=== PATIENT | female | born 1975 | race Caucasian/White ===

== ENCOUNTER 2020-12-23 09:20 | Inpatient (IN) ==
[2020-12-23] MEDS ORDERED: ONDANSETRON INJ 2 MG/ML 2 ML VIAL IV STA (09:50)
--- NOTE | 2020-12-23 09:59 | Emergency Department Note ---
Impression & Plan Pneumonia due to COVID-19 virus, Moderate persistent asthma, Hypoxia ED Provider Note CHIEF COMPLAINT: Nausea, diarrhea, fatigue and lightheadedness, Covid positive HISTORY OF PRESENTING ILLNESS: This is a 45-year-old female who presents to the emergency department by private vehicle with complaint of feeling fatigued and lightheaded and generally weak, and having persistent nausea and diarrhea for the past few days. Patient tested positive for COVID-19 on 12/18, she has had symptoms for the past 6 days. She notes that she started having diarrhea yesterday which is loose in nature, only a few episodes. She has nausea but no vomiting. She states she has very little appetite and has lost almost 10 pounds in the past week. She notes feeling generally weak and fatigued and has been feeling lightheaded especially when she stands up from sitting down and feels like she might pass out, but she has not passed out. She notes a cough and some wheezing, she has been using her albuterol inhaler with improvement. She has not been short of breath and denies any chest pain or chest tightness. She denies any headaches, neck pain or stiffness, vision changes, or syncope. She denies any abdominal pain or back pain. She rates her pain level 0/10. She does note that she has body aches that come and go, but she is not currently complaining of any now. She does currently have nausea and is requesting something for that. 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 REVIEW OF SYSTEMS: A complete 10 point review of systems was reviewed with the patient with pertinent positives and negatives as per history of present illnes s. All else were negative. PAST MEDICAL HISTORY: Asthma SOCIAL HISTORY: Lives at home, she denies tobacco use ALLERGIES: Penicillin PHYSICAL EXAM: CONSTITUTIONAL: Pleasant and cooperative. Nontoxic-appearing and in no acute distress, but appears to feel unwell. Moderately dehydrated. HEENT: Normocephalic, atraumatic. PERRL, EOMI. Pharynx normal. Dry mucous membranes. NECK: Supple, full active range of motion without discomfort. No cervical adenopathy. No nuchal rigidity or meningismus. RESPIRATORY: Diminished in the bases with coarse crackles bilaterally, no wheezing, rhonchi, or stridor. Nonlabored breathing, no accessory muscle use or tachypnea. Equal expansion bilaterally. CARDIOVASCULAR: Regular rate and rhythm with no murmurs, rubs or gallops. Normal peripheral perfusion, 2+ distal pulses in all 4 extremities. No pitting edema. GASTROINTESTINAL: Soft, nontender to palpation throughout, nondistended. No palpable masses or HSM. Bowel sounds present in all quadrants. No CVA tenderness bilaterally. MUSCULOSKELETAL: Full range of motion of all joints without discomfort. No tenderness to palpation throughout the calves bilaterally, negative Homans' sign bilaterally. INTEGUMENTARY: No rash or other significant dermatologic conditions noted. NEUROLOGIC: Alert and oriented X 4 with normal affect. Normal strength and sensation in all 4 extremities. Normal speech. Normal gait observed. ED COURSE AND MEDICAL DECISION MAKING: CC: Patient presenting with complaint of fatigue and lightheadedness, nausea, diarrhea, + COVID-19 DIFFERENTIAL DIAGNOSIS: Includes, but not limited to COVID-19, dehydration, orthostatic hypotension, electrolyte abnormality, anemia, UTI, pneumonia, cardiac dysrhythmia, among others. INTERPRETATION OF LABS: No leukocytosis, no anemia, normal platelets, no significant electrolyte abnormalities, normal renal function, normal liver en zymes and lipase. Serum negative. Troponin undetectable. EKG: Shows normal sinus rhythm with a rate of 78 bpm, incomplete right bundle branch block, otherwise normal intervals, no ST elevation or depression, no ectopy by my interpretation. No previous EKGs available for comparison. MEDICATION RECONCILIATION: I attest that I have personally reviewed the patient's current medication list. INITIAL VITAL SIGNS REVIEW: I reviewed the patient's initial vital signs and interpret them as follows: T: Afebrile; BP: Mildly hypotensive; HR: Mildly tachycardic; RR: Within normal limits; Pulse Ox: Within normal limits on room air. MDM SUMMARY: Patient was evaluated at bedside, history and physical exam performed. Patient is alert and oriented, in no acute distress, resting calmly in the stretcher. She does appear to feel unwell and is notably dehydrated on exam. She is afebrile and nontoxic-appearing. No respiratory distress. Patient primarily complains of feeling lightheaded and nausea, but she is not actively vomiting. No abdominal tenderness on exam. Cardiac monitoring: An order was placed for continuous cardiac monitoring. The monitor shows a rate of 97 bpm with normal sinus rhythm. Orders were placed for labs including troponin, UA, IV fluid bolus x2 L for h ydration, IV Zofran for nausea, EKG, chest x-ray to evaluate for fatigue and lightheadedness. Patient discussed with Dr. Dao, who agrees with my assessment, plan, and disposition. Labs and imaging reviewed as above, labs are fairly unremarkable. Troponin is undetectable. No anemia or significant electrolyte abnormalities. Her chest x-ray did show bilateral multifocal airspace opacities consistent with a viral pneumonia. Nursing staff called and notified me that the patient had dropped her sats to 88% with minimal exertion, and is now on nasal cannula. I did talk over the phone with the patient to see how she is feeling, she she feels slightly better after receiving some IV fluids, but is still very fatigued. She also is complaining of some return of body aches and requested something for this, I did order IV Toradol. Given her oxygen requirement, I did feel that she could benefit from hospital stay. I did order IV Decadron and the patient is currently on 3 L nasal cannula. I spoke on the phone with Dr. Mills, [facility] Hospitalist, who agreed to evaluate the patient for admission. He requested that the patient only receive 1 L of fluids, I contacted the patient's nurse and the second liter will be held. The patient was updated on plan for admission, she was agreeable to this plan. Patient was stable at time of admission. The chart was completed utilizing [employer] Speech voice recognition software. Grammatical errors, random word insertions, pronoun errors, and incomplete sentences are an occasional consequence of this system due to software limitations, ambient noise, and hardware issues. Any formal questions or concerns about the content, text, or information contained within the body of this dictation should be directly addressed to the nurse practitioner for clarification. Past Med/Surg History Medical History Endometriosis GERD (gastroesophageal reflux disease) Moderate persistent asthma Surgical History History of cholecystectomy History of hysterectomy Social History Smoking Status: Former smoker Age Quit Using Tobacco: 39; packs per day: 1; Years Smoked: 20; Second Hand Exposure: No; Do You Dip or Chew Tobacco: No; Hx Alcohol Use: Yes Alcohol type: beer, wine and hard liquor Hx Substance Use: No Preferred Language: Serbian Communication Ability: Effective Peoplesoft Programmer Required: No Beliefs That Will Affect Care: None Current Living Situation: Spouse Other Information That Helps Us Care for You: No Feels Safe at Home: Yes Safety Concerns: Feels Safe At This Time Assistive Devices: Denture - Upper and Glasses Allergies Allergies Allergy/AdvReac Type Severity Reaction Status Date / Time Penicillins Allergy Intermediate Vomiting Unverified 12/23/20 10:09 Home Meds Home Medications Medication Instructions Recorded Confirmed fluticasone propion-salmeterol 1 inh INHALATION BID 12/23/20 12/23/20 [Advair Diskus] levocetirizine [Xyzal] 5 mg PO PM PRN 12/23/20 12/23/20 omeprazole 40 mg PO QAM 12/23/20 12/23/20 Results & Data (ED) Vital Signs Vital Signs - 24 hr 12/23/20 09:30 12/23/20 11:20 12/23/20 11:50 Temperature 36.6 C Temperature Source Temporal Artery Scan Pulse Rate - Lying 84 Pulse Rate - Sitting 82 Pulse Rate - Standing 89 Pulse Rate 99 H 76 Pulse Rate from SpO2 Sensor 75 Respiratory Rate 18 20 25 H Respiratory Effort / Characteristics Non-Labored Spontaneous Blood Pressure - Lying 111/68 Blood Pressure - Sitting 110/72 Blood Pressure- Standing 105/69 Blood Pressure 93/67 L 105/69 Blood Pressure Mean 75 81 Pulse Oximetry 92 91 95 Oxygen Delivery Method Room Air Room Air Oxygen Flow Rate Sepsis Recent Fever Within 48 Hours No Sepsis New/Unexplained Change in Mental Status N/A Sepsis Action Taken by Nursing No Action Required 12/23/20 12:04 Temperature Temperature Source Pulse Rate - Lying Pulse Rate - Sitting Pulse Rate - Standing Pulse Rate Pulse Rate from SpO2 Sensor Respiratory Rate Respiratory Effort / Characteristics Blood Pressure - Lying Blood Pressure - Sitting Blood Pressure- Standing Blood Pressure Blood Pressure Mean Pulse Oximetry 88 L Oxygen Delivery Method Room Air Oxygen Flow Rate 3 Sepsis Recent Fever Within 48 Hours Sepsis New/Unexplained Change in Mental Status Sepsis Action Taken by Nursing Laboratory Data Result diagrams: 12/23/20 11:45 12/23/20 11:45 Lab Results 04/15/21 04/15/21 04/15/21 Range/Units 11:43 11:45 11:45 WBC 4.92 (4.8-10.8) K/uL RBC 5.14 (4.2-5.4) M/uL Hgb 14.0 (12.0-16.0) g/dL Hct 42.7 (37-47) % MCV 83.1 (80-100) fL MCH 27.2 (25-34) pg MCHC 32.8 (32-36) g/dL RDW Std Deviation 43.2 (36.4-46.3) fL RDW Coeff of Jannette 14.1 (11.5-14.5) % Plt Count 259 (130-400) K/uL MPV 10.6 H (7.4-10.4) fL Immature Gran % (Auto) 0.0 % Neut % (Auto) 73.8 % Lymph % (Auto) 21.7 % [place] % (Auto) 4.3 % Eos % (Auto) 0.0 % Baso % (Auto) 0.2 % Neut # (Auto) 3.63 (1.4-6.5) K/uL Lymph # (Auto) 1.07 L (1.2-3.4) K/uL [place] # (Auto) 0.21 (0.11-0.59) K/uL Eos # (Auto) 0.00 (0-0.5) K/uL Baso # (Auto) 0.01 (0-0.2) K/uL Immature Gran # (Auto) 0.00 (0.00-0.02) K/uL D-Dimer 250 (0-500) ug/L FEU Sodium 139 (136-145) mmol/L Potassium 3.5 (3.5-5.1) mmol/L Chloride 104 (98-107) mmol/L Carbon Dioxide 29 (21-32) mmol/L Anion Gap 6.0 (3-11) BUN 19 H (7-18) mg/dl Creatinine 0.95 (0.6-1.2) mg/dl Est Cr Clr Drug Dosing Not Reportable Est GFR ( Amer) 84.4 Est GFR (Non-Af Amer) 72.8 BUN/Creatinine Ratio 20.3 H (10-20) Glucose 89 (70-99) mg/dl Calcium 8.8 (8.5-10.1) mg/dl Total Bilirubin 0.6 (0.2-1) mg/dl AST 46 H (15-37) U/L ALT 46 (12-78) U/L Alkaline Phosphatase 74 (45-117) U/L Troponin I < 0.015 (0-0.045) ng/ml C-Reactive Protein (0-0.29) mg/dl Total Protein 7.9 (6.4-8.2) gm/dl Albumin 3.4 (3.4-5.0) gm/dl Globulin 4.5 H (2.5-4.0) gm/dl Albumin/Globulin Ratio 0.8 L (0.9-2) Lipase 293 (73-393) U/L HCG, Qual (Negative) Urine Color Urine Appearance (Clear) Urine pH (4.5-7.5) Ur Specific Morley (1.000-1.030) Urine Protein (Negative) Urine Glucose (UA) (Negative) Urine Ketones (Negative) Urine Blood (Negative) Urine Nitrite (Negative) Urine Bilirubin (Negative) Urine Urobilinogen (Negative) Ur Leukocyte Esterase (Negative) Urine WBC (Auto) (0-5) /hpf Urine RBC (Auto) (0-4) /hpf U Hyaline Cast (Auto) (0-5) /lpf U Epithel Cells (Auto) (0-5) /lpf Urine Bacteria (Auto) (Negative) Granular Casts (0) /lpf WBC Casts (0) /lpf COVID-19 Eval Order SARS-CoV-2 (PCR) (Negative) Influenza Type A (PCR) (Neg) Influenza Type B (PCR) (Neg) RSV (RT-PCR) (Neg) 12/23/20 12/23/20 12/23/20 Range/Units 11:45 11:45 12:55 WBC (4.8-10.8) K/uL RBC (4.2-5.4) M/uL Hgb (12.0-16.0) g/dL Hct (37-47) % MCV (80-100) fL MCH (25-34) pg MCHC (32-36) g/dL RDW Std Deviation (36.4-46.3) fL RDW Coeff of Jannette (11.5-14.5) % Plt Count (130-400) K/uL MPV (7.4-10.4) fL Immature Gran % (Auto) % Neut % (Auto) % Lymph % (Auto) % [place] % (Auto) % Eos % (Auto) % Baso % (Auto) % Neut # (Auto) (1.4-6.5) K/uL Lymph # (Auto) (1.2-3.4) K/uL [place] # (Auto) (0.11-0.59) K/uL Eos # (Auto) (0-0.5) K/uL Baso # (Auto) (0-0.2) K/uL Immature Gran # (Auto) (0.00-0.02) K/uL D-Dimer (0-500) ug/L FEU Sodium (136-145) mmol/L Potassium (3.5-5.1) mmol/L Chloride (98-107) mmol/L Carbon Dioxide (21-32) mmol/L Anion Gap (3-11) BUN (7-18) mg/dl Creatinine (0.6-1.2) mg/dl Est Cr Clr Drug Dosing Est GFR ( Amer) Est GFR (Non-Af Amer) BUN/Creatinine Ratio (10-20) Glucose (70-99) mg/dl Calcium (8.5-10.1) mg/dl Total Bilirubin (0.2-1) mg/dl AST (15-37) U/L ALT (12-78) U/L Alkaline Phosphatase (45-117) U/L Troponin I (0-0.045) ng/ml C-Reactive Protein 0.78 H (0-0.29) mg/dl Total Protein (6.4-8.2) gm/dl Albumin (3.4-5.0) gm/dl Globulin (2.5-4.0) gm/dl Albumin/Globulin Ratio (0.9-2) Lipase (73-393) U/L HCG, Qual Negative (Negative) Urine Color Dark Yellow Urine Appearance Cloudy A (Clear) Urine pH 5.5 (4.5-7.5) Ur Specific Morley 1.029 (1.000-1.030) Urine Protein 1+ H (Negative) Urine Glucose (UA) Negative (Negative) Urine Ketones Trace H (Negative) Urine Blood Trace H (Negative) Urine Nitrite Positive A (Negative) Urine Bilirubin 1+ H (Negative) Urine Urobilinogen Negative (Negative) Ur Leukocyte Esterase Trace H (Negative) Urine WBC (Auto) 1-5 (0-5) /hpf Urine RBC (Auto) 10-30 H (0-4) /hpf U Hyaline Cast (Auto) 1-5 (0-5) /lpf U Epithel Cells (Auto) >30 H (0-5) /lpf Urine Bacteria (Auto) Negative (Negative) Granular Casts 1-5 H (0) /lpf WBC Casts 1-5 H (0) /lpf COVID-19 Eval Order SARS-CoV-2 (PCR) (Negative) Influenza Type A (PCR) (Neg) Influenza Type B (PCR) (Neg) RSV (RT-PCR) (Neg) 12/23/20 12/23/20 Range/Units 12:55 12:55 WBC (4.8-10.8) K/uL RBC (4.2-5.4) M/uL Hgb (12.0-16.0) g/dL Hct (37-47) % MCV (80-100) fL MCH (25-34) pg MCHC (32-36) g/dL RDW Std Deviation (36.4-46.3) fL RDW Coeff of Jannette (11.5-14.5) % Plt Count (130-400) K/uL MPV (7.4-10.4) fL Immature Gran % (Auto) % Neut % (Auto) % Lymph % (Auto) % [place] % (Auto) % Eos % (Auto) % Baso % (Auto) % Neut # (Auto) (1.4-6.5) K/uL Lymph # (Auto) (1.2-3.4) K/uL [place] # (Auto) (0.11-0.59) K/uL Eos # (Auto) (0-0.5) K/uL Baso # (Auto) (0-0.2) K/uL Immature Gran # (Auto) (0.00-0.02) K/uL D-Dimer (0-500) ug/L FEU Sodium (136-145) mmol/L Potassium (3.5-5.1) mmol/L Chloride (98-107) mmol/L Carbon Dioxide (21-32) mmol/L Anion Gap (3-11) BUN (7-18) mg/dl Creatinine (0.6-1.2) mg/dl Est Cr Clr Drug Dosing Est GFR ( Amer) Est GFR (Non-Af Amer) BUN/Creatinine Ratio (10-20) Glucose (70-99) mg/dl Calcium (8.5-10.1) mg/dl Total Bilirubin (0.2-1) mg/dl AST (15-37) U/L ALT (12-78) U/L Alkaline Phosphatase (45-117) U/L Troponin I (0-0.045) ng/ml C-Reactive Protein (0-0.29) mg/dl Total Protein (6.4-8.2) gm/dl Albumin (3.4-5.0) gm/dl Globulin (2.5-4.0) gm/dl Albumin/Globulin Ratio (0.9-2) Lipase (73-393) U/L HCG, Qual (Negative) Urine Color Urine Appearance (Clear) Urine pH (4.5-7.5) Ur Specific Morley (1.000-1.030) Urine Protein (Negative) Urine Glucose (UA) (Negative) Urine Ketones (Negative) Urine Blood (Negative) Urine Nitrite (Negative) Urine Bilirubin (Negative) Urine Urobilinogen (Negative) Ur Leukocyte Esterase (Negative) Urine WBC (Auto) (0-5) /hpf Urine RBC (Auto) (0-4) /hpf U Hyaline Cast (Auto) (0-5) /lpf U Epithel Cells (Auto) (0-5) /lpf Urine Bacteria (Auto) (Negative) Granular Casts (0) /lpf WBC Casts (0) /lpf COVID-19 Eval Order [facility]Rsv at [facility] SARS-CoV-2 (PCR) POSITIVE A* (Negative) Influenza Type A (PCR) Negative (Neg) Influenza Type B (PCR) Negative (Neg) RSV (RT-PCR) Negative (Neg) Administered Medications Discontinued Medications Dexamethasone Sodium Phosphate (DexamethasonePf 10 Mg/Ml Vial) 10 mg IV NOW ONE Stop: 12/23/20 12:32 Last Admin: 12/23/20 12:55 Dose: 10 mg Documented by: [id number] Sodium Chloride (Nss 1000ml) 2,000 mls @ 999 mls/hr IV .Q2H1M PADMA Stop: 12/23/20 12:00 Last Infusion: 12/23/20 15:00 Dose: 0 mls/hr Documented by: [id number] Infusion: 12/23/20 14:06 Dose: 999 mls/hr Documented by: [id number] Admin: 12/23/20 11:37 Dose: 999 mls/hr Documented by: [id number] Ketorolac Tromethamine (Ketorolac Tromethamine 15 Mg/Ml Vial) 10 mg IV NOW ONE Stop: 12/23/20 12:33 Last Admin: 12/23/20 12:55 Dose: 10 mg Documented by: [id number] Ondansetron HCl (Ondansetron Inj 2 Mg/Ml 2 Ml Vial) 4 mg IV NOW STA Stop: 12/23/20 09:51 Last Admin: 12/23/20 11:38 Dose: 4 mg Documented by: [id number] Imaging Data Radiologist's Impression: Chest X-Ray 12/23/20 09:50 XR chest 1V portable CLINICAL HISTORY: cough, COVID+ COMPARISON STUDY: No previous studies for comparison. FINDINGS: Lung volumes are normal. No pneumothorax or pleural effusion is noted. Note is made of mild multifocal bilateral airspace opacities. Cardiac size is normal. Mediastinal contours are normal. IMPRESSION: Mild multifocal bilateral airspace opacities suggestive of an infectious process such as viral pneumonia. ACT 112: Negative or not required by law. Electronically signed by: Byron Murillo M.D. 12/23/2020 10:45 AM Discharge Plan Visit Data Chief Complaint: Diarrhea Stated Complaint: DIARRHEA-BODY [id number] POSITIVE ED Provider: Michael Dao ED Midlevel Provider: Arlette Richter Discharge Problem: Pneumonia due to COVID-19 virus, Moderate persistent asthma, Hypoxia Patient Disposition: Admitted As Inpatient Condition: Good Discharge Instructions Interventions: ED Discharge Assessment Last Done: 12/23/20 14:40 Discharge Problem: Moderate persistent asthma Qualifiers: Asthma complication type: unspecified Qualified Code(s): J45.40 - Moderate persistent asthma, uncomplicated
[2020-12-23] MEDS ORDERED: SODIUM CHLORIDE 0.9% 1000ML 2,000 ML IV SCH (10:00)
--- NOTE | 2020-12-23 10:46 | XRay Report ---
XR chest 1V portable CLINICAL HISTORY: cough, COVID+ COMPARISON STUDY: No previous studies for comparison. FINDINGS: Lung volumes are normal. No pneumothorax or pleural effusion is noted. Note is made of mild multifocal bilateral airspace opacities. Cardiac size is normal. Mediastinal contours are normal. IMPRESSION: Mild multifocal bilateral airspace opacities suggestive of an infectious process such as viral pneumonia. ACT 112: Negative or not required by law. Electronically signed by: Byron Murillo M.D. 12/23/2020 10:45 AM
[2020-12-23 12:00] LABS: Basophils # (auto) 0.01 K/uL (0-0.2); Basophils % (auto) 0.2 %; Hematocrit (blood only) 42.7 % (37-47); Lymphocytes # (auto) 1.07 K/uL (1.2-3.4); Lymphocytes % (auto) 21.7 %; Mean Corpuscular Hemoglobin 27.2 pg (25-34); Mean Corpuscular Hgb Conc 32.8 g/dL (32-36); Mean Corpuscular Volume 83.1 fL (80-100); Mean Platelet Volume 10.6 fL (7.4-10.4); Monocytes # (auto) 0.21 K/uL (0.11-0.59); Monocytes % (auto) 4.3 %; Neutrophils # (auto) 3.63 K/uL (1.4-6.5); Neutrophils % (auto) 73.8 %; Platelet Count 259 K/uL (130-400); RDW Coefficient of Variation 14.1 % (11.5-14.5); RDW Standard Deviation 43.2 fL (36.4-46.3); Red Blood Count 5.14 M/uL (4.2-5.4); White Blood Count 4.92 K/uL (4.8-10.8)
[2020-12-23 12:13] LABS: Albumin Level 3.4 gm/dl (3.4-5.0); BUN Creatinine Ratio 20.3 (10-20); Blood Urea Nitrogen 19 mg/dl (7-18); Calcium 8.8 mg/dl (8.5-10.1); Carbon Dioxide 29 mmol/L (21-32); Chloride 104 mmol/L (98-107); Est GFR (African American) 84.4; Est GFR (Non-African American) 72.8; Glucose 89 mg/dl (70-99); Lipase 293 U/L (73-393); Potassium 3.5 mmol/L (3.5-5.1); Sodium 139 mmol/L (136-145)
[2020-12-23 12:15] LABS: Pregnancy Test, Serum Negative (Negative)
[2020-12-23 12:18] LABS: Alanine Aminotransferase 46 U/L (12-78); Albumin Globulin Ratio 0.8 (0.9-2); Alkaline Phosphatase 74 U/L (45-117); Aspartate Aminotransferase 46 U/L (15-37); Bilirubin,Total 0.6 mg/dl (0.2-1); Globulin 4.5 gm/dl (2.5-4.0); Total Protein 7.9 gm/dl (6.4-8.2); Troponin I < 0.015 ng/ml (0-0.045)
[2020-12-23] MEDS ORDERED: dexAMETHasone**PF** 10 MG/ML VIAL IV ONE (12:31)
[2020-12-23] MEDS ORDERED: KETOROLAC TROMETHAMINE 15 MG/ML VIAL IV ONE (12:32)
--- NOTE | 2020-12-23 13:05 | History & Physical Report ---
Date of Service December 23, 2020 Assessment & Plan (1) Pneumonia due to COVID-19 virus: Hypoxic however inflammatory and other severity markers suggest unlikely severe disease Dexamethasone 10 mg IV given in ER, continue 6 mg IV daily for total of 10 days or until discharge COVID isolation precautions Self prone as able (2) Hypoxia: Aim O2 sats > 94% (3) Moderate persistent asthma: Continue Advair Diskus twice daily Continue Xyzal 5 mg p.o. daily (4) GERD (gastroesophageal reflux disease): Switch omeprazole for pantoprazole per hospital formulary (5) DVT prophylaxis: Lovenox 40 mg SQ daily. High-dose deferred due to young age, low D-dimer and other inflammatory markers. History of Present Illness Chief Complaint: Upper respiratory infection symptoms Primary Care Provider: NO PCP Mel Tapia is a 45-year-old female who presents to the ER with known COVID-19 pneumonia due to worsening shortness of breath, cough and weakness. Initial symptoms 6 days ago with generalized myalgias a following morning she woke up with loss of taste. Symptoms slowly progressively getting worse. Currently on day 7 of illness. She is in the process of moving house and decided to isolate from her family by moving into the new house. Unfortunately she is not been able to care for self at this time with significant fatigue, poor appetite and diarrhea starting this morning. She denies any nausea/vomiting, nasal congestion or abdominal pain. She has been using her albuterol inhaler more which she feels has been helping. Not yet taken any steroids or antibiotics. On Advair Diskus but did not take this this morning. She reports having "a lot of allergies" even to allergy shots. In the ER chest x-ray concerning for bilateral viral pneumonia. She was hypoxic requiring 3LPM O2 to maintain O2 sats > 94%. She was referred to medicine for admission ongoing management of COVID-19 pneumonia and hypoxia Allergies Allergy/AdvReac Type Severity Reaction Status Date / Time Penicillins Allergy Intermediate Vomiting Unverified 12/23/20 10:09 Home Medications Medication Instructions Recorded Confirmed Type fluticasone propion-salmeterol 1 inh INHALATION BID 12/23/20 12/23/20 History [Advair Diskus] levocetirizine [Xyzal] 5 mg PO PM PRN 12/23/20 12/23/20 History omeprazole 40 mg PO QAM 12/23/20 12/23/20 History Past Med/Surg History Medical History Endometriosis GERD (gastroesophageal reflux disease) Moderate persistent asthma Surgical History History of cholecystectomy History of hysterectomy Social History Smoking Status: Former smoker Age Quit Using Tobacco: 39; packs per day: 1; Years Smoked: 20; Do You Dip or Chew Tobacco: No; Hx Alcohol Use: No Hx Substance Use: No Preferred Language: Irish Current Living Situation: Spouse Feels Safe at Home: Yes Review of Systems Review of Systems: All systems reviewed & are unremarkable except as noted in HPI & below Physical Exam Constitutional: WD/WN, vitals as above + obese Eyes: + anicteric sclerae; normal pupil size ENMT: external ear and nose normal, oropharynx normal Respiratory: normal respiratory effort, + respiratory distress and able to speak in complete sentences Auscultation: + crackles (Bibasal coarse); no diminished lung sounds and no wheezes Cardiovascular: RRR, no murmur, no edema Gastrointestinal (Abdomen): normal bowel sounds, soft, nontender, no hepatosplenomegaly Musculoskeletal: no cyanosis or clubbing, extremities motor strength 5/5 Skin: no rashes, warm and dry Neurologic: moves all extremities and awake; not confused Psychiatric: A+Ox3, euthymic affect Results & Data Results & Data ([facility]) Vital Signs (Past 12 Hours) Vital Signs Temp Pulse Resp BP Pulse Ox 12/23/20 12:04 88 L 12/23/20 11:20 20 91 12/23/20 09:30 36.6 C 99 H 18 93/67 L 92 Diagnostic Findings XR chest 1V portable IMPRESSION: Mild multifocal bilateral airspace opacities suggestive of an infectious process such as viral pneumonia. Medications Administered ER medications given: NSS 1 hour bolus Ondansetron 4 mg IV Dexamethasone 10 mg IV Toradol 10 mg IV ECG Rate (beats per minute): 78 Rhythm: normal sinus Findings: + other (T wave abnormality in the anterior lateral leads) and + RBBB (Incomplete) Comparison ECG Date: no prior available Code Status & VTE Plan Code Status Full VTE Prophylaxis Plan VTE Prophylaxis will be ordered: Yes PG Care Time/CCT Total # of Minutes Spent Total Time Spent with Patient: Total time spent is greater than 50% in coordi nation of care (as documented) at patient's floor/unit and/or counseling patient: Coding Level of Care Code 44251 Initial Inpt Care Lvl 2 Diagnoses Pneumonia due to COVID-19 virus U07.1; J12.82 Hypoxia R09.02 Moderate persistent asthma J45.40 GERD (gastroesophageal reflux disease) K21.9 DVT prophylaxis Z29.9
[2020-12-23 13:20] LABS: Appearance Urine Cloudy (Clear); Bacteria Urine Automated Negative (Negative); Blood Urine Trace (Negative); Color Urine Dark Yellow; Epithelial Cell Urine Auto >30 /lpf (0-5); Glucose Urine UA Negative (Negative); Ketones Urine Trace (Negative); Leukocyte Esterase Urine Trace (Negative); Nitrite Urine Positive (Negative); Protein Urine 1+ (Negative); Specific Gravity Urine 1.029 (1.000-1.030); Urobilinogen Urine Negative (Negative); pH Urine 5.5 (4.5-7.5)
[2020-12-23 13:22] LABS: Bilirubin Urine 1+ (Negative)
[2020-12-23 13:52] LABS: D Dimer 250 ug/L FEU (0-500)
[2020-12-23 13:56] LABS: Influenza A virus by PCR Negative (Neg); Influenza B virus by PCR Negative (Neg); RSV by PCR Negative (Neg)
[2020-12-23 14:01] LABS: SARS CoV2 RNA(COVID-19) InHosp POSITIVE (Negative)
[2020-12-23] MEDS ORDERED: ONDANSETRON INJ 2 MG/ML 2 ML VIAL IV PRN (14:47)
[2020-12-23] MEDS ORDERED: ALUMINUM/MAGNESIUM SUSP 30 ML UDC PO PRN (14:47)
[2020-12-23] MEDS: ENOXAPARIN INJ 40 MG/0.4 ML SYR SQ SCH (20:21)
[2020-12-23] MEDS: FLUTICASONE/VILANTEROL 200/25MCG 14 PUFFS/INHALER INH SCH (20:21)
--- NOTE | 2020-12-24 06:33 | Electrocardiogram Report ---
Test Reason : Blood Pressure : / mmHG Vent. Rate : 078 BPM Atrial Rate : 078 BPM P-R Int : 152 ms QRS Dur : 104 ms QT Int : 378 ms P-R-T Axes : 034 -01 033 degrees QTc Int : 430 ms Normal sinus rhythm Incomplete right bundle branch block T wave abnormality, consider anterolateral ischemia Abnormal ECG No previous ECGs available Confirmed by Chidi Flores ([id number]) on 12/24/2020 6:33:35 AM Referred By: REFERRED SELF Confirmed By:Chidi Flores
[2020-12-24] MEDS: PANTOprazole 40 MG TAB PO SCH (08:34)
[2020-12-24] MEDS: dexAMETHasone 6 MG in SYRINGE 0 ML IV SCH (08:35)
[2020-12-24] MEDS: KETOROLAC TROMETHAMINE 15 MG/ML VIAL IV PRN ×2 (12:53→20:35)
[2020-12-24] MEDS: ALBUTEROL HFA 8 GM INHALER INH PRN (17:39)
[2020-12-24] MEDS: ACETAMINOPHEN 325 MG TAB PO PRN ×2 (17:51→21:53)
[2020-12-24] MEDS: FLUTICASONE/VILANTEROL 200/25MCG 14 PUFFS/INHALER INH SCH (20:34)
[2020-12-24] MEDS: ENOXAPARIN INJ 40 MG/0.4 ML SYR SQ SCH (20:34)
[2020-12-24] MEDS: CETIRIZINE HCL 10 MG TABLET PO SCH (20:35)
--- NOTE | 2020-12-24 21:14 | Hospitalist Progress Note ---
Date of Service December 24, 2020 Assessment & Plan (1) Pneumonia due to COVID-19 virus: Hypoxic however inflammatory and other severity markers suggest unlikely severe disease. Repeat CRP in a.m. Dexamethasone 10 mg IV given in ER, continue 6 mg IV daily for total of 10 days or until discharge. COVID isolation precautions Self prone as able. Continued admission due to significant hypoxia and dyspnea on exertion (2) Hypoxia: Aim O2 sats > 94% (3) Moderate persistent asthma: Continue Advair Diskus twice daily Continue Xyzal 5 mg p.o. daily Encouraged use of albuterol as needed (4) GERD (gastroesophageal reflux disease): Switch omeprazole for pantoprazole per hospital formulary (5) DVT prophylaxis: Lovenox 40 mg SQ daily. High-dose deferred due to young age, low D-dimer and other inflammatory markers. Admission and Anticipated Discharge Date Admission Date: December 23, 2020 Subjective Feeling much better since admission although still requiring 4LPM O2. Coughing more but nonproductive. Still very short of breath on any movement. No chest pain, fever, chills. She reports experiencing a rash on the right side of her chest wall. Review of Systems Review of Systems: All systems reviewed & are unremarkable except as noted in HPI & below Physical Exam Constitutional: WD/WN, vitals as above + obese ENMT: Mouth: oral mucous membranes not dry Respiratory: normal respiratory effort and able to speak in complete sentences; no respiratory distress Auscultation: + diminished lung sounds (Bibasal) and + crackles (Bibasal coarse); no wheezes Cardiovascular: RRR, no murmur, no edema Gastrointestinal (Abdomen): normal bowel sounds, soft, nontender, no hep atosplenomegaly Musculoskeletal: no cyanosis or clubbing, extremities motor strength 5/5 Skin: + dry skin (Right-sided chest wall without rash) Neurologic: moves all extremities and awake; not confused Psychiatric: A+Ox3, euthymic affect Results & Data Results & Data ([facility]) Vital Signs (Past 12 Hours) Vital Signs Temp Pulse Resp BP Pulse Ox 12/24/20 20:41 37.9 C H 76 22 91 12/24/20 17:46 37.6 C H 80 18 108/77 95 PG Care Time/CCT Total # of Minutes Spent Total Time Spent with Patient: Total time spent is greater than 50% in coordination of care (as documented) at patient's floor/unit and/or counseling patient: Coding Level of Care Code 78956 Subseq Hosp Care Lvl 2 Diagnoses Pneumonia due to COVID-19 virus U07.1; J12.82 Hypoxia R09.02 Moderate persistent asthma J45.40 Asthma complication type: unspecified GERD (gastroesophageal reflux disease) K21.9 DVT prophylaxis Z29.9 (1) Moderate persistent asthma Asthma complication type: unspecified Qualified Code(s): J45.40 - Moderate persistent asthma, uncomplicated
[2020-12-25 06:41] LABS: Basophils # (auto) 0.01 K/uL (0-0.2); Basophils % (auto) 0.2 %; Hematocrit (blood only) 38.3 % (37-47); Hemoglobin 12.3 g/dL (12.0-16.0); Immature Granulocytes # (auto) 0.02 K/uL (0.00-0.02); Immature Granulocytes % (auto) 0.4 %; Lymphocytes # (auto) 1.84 K/uL (1.2-3.4); Lymphocytes % (auto) 36.6 %; Mean Corpuscular Hemoglobin 26.6 pg (25-34); Mean Corpuscular Hgb Conc 32.1 g/dL (32-36); Mean Corpuscular Volume 82.7 fL (80-100); Mean Platelet Volume 10.7 fL (7.4-10.4); Monocytes # (auto) 0.21 K/uL (0.11-0.59); Monocytes % (auto) 4.2 %; Neutrophils # (auto) 2.95 K/uL (1.4-6.5); Neutrophils % (auto) 58.6 %; Platelet Count 267 K/uL (130-400); RDW Coefficient of Variation 13.8 % (11.5-14.5); RDW Standard Deviation 41.8 fL (36.4-46.3); Red Blood Count 4.63 M/uL (4.2-5.4); White Blood Count 5.03 K/uL (4.8-10.8)
[2020-12-25 06:56] LABS: D Dimer < 190 ug/L FEU (0-500)
[2020-12-25 07:05] LABS: BUN Creatinine Ratio 32.4 (10-20); C Reactive Protein 1.56 mg/dl (0-0.29); Calcium 8.6 mg/dl (8.5-10.1); Creatinine Clr Calc Pharmacy 117.6 ml/min; Est GFR (African American) 123.9; Est GFR (Non-African American) 106.9; Potassium 3.3 mmol/L (3.5-5.1)
[2020-12-25] MEDS: ACETAMINOPHEN 325 MG TAB PO PRN (08:46)
[2020-12-25] MEDS: PANTOprazole 40 MG TAB PO SCH (08:46)
[2020-12-25] MEDS: dexAMETHasone 6 MG in SYRINGE 0 ML IV SCH (08:47)
[2020-12-25] MEDS: POTASSIUM CHLORIDE CRTAB 20 MEQ TABCR PO SCH (09:58)
[2020-12-25 10:35] LABS: Appearance Urine Clear (Clear); Bacteria Urine Automated Negative (Negative); Bilirubin Urine Negative (Negative); Blood Urine 2+ (Negative); Color Urine Dark Yellow; Epithelial Cell Urine Auto 20-30 /lpf (0-5); Glucose Urine UA Negative (Negative); Ketones Urine Negative (Negative); Leukocyte Esterase Urine 1+ (Negative); Nitrite Urine Negative (Negative); Protein Urine 1+ (Negative); Specific Gravity Urine 1.032 (1.000-1.030); Urobilinogen Urine Negative (Negative); pH Urine 5.5 (4.5-7.5)
[2020-12-25] MEDS: ALBUTEROL HFA 8 GM INHALER INH PRN ×2 (17:37→21:35)
[2020-12-25] MEDS: FLUTICASONE/VILANTEROL 200/25MCG 14 PUFFS/INHALER INH SCH (20:30)
[2020-12-25] MEDS: CETIRIZINE HCL 10 MG TABLET PO SCH (20:39)
[2020-12-25] MEDS: ENOXAPARIN INJ 40 MG/0.4 ML SYR SQ SCH (20:39)
[2020-12-26] MEDS: PANTOprazole 40 MG TAB PO SCH (08:59)
[2020-12-26] MEDS: dexAMETHasone 6 MG in SYRINGE 0 ML IV SCH (09:00)
[2020-12-26] MEDS: POTASSIUM CHLORIDE CRTAB 20 MEQ TABCR PO SCH (09:00)
[2020-12-26] MEDS: ALBUTEROL HFA 8 GM INHALER INH PRN ×2 (09:08→20:39)
--- NOTE | 2020-12-26 14:03 | Hospitalist Progress Note ---
Date of Service December 26, 2020 Assessment & Plan (1) Pneumonia due to COVID-19 virus: Hypoxic however inflammatory and other severity markers suggest unlikely severe disease. Repeat CRP in a.m. Dexamethasone 10 mg IV given in ER, continue 6 mg IV daily for total of 10 days or until discharge. COVID isolation precautions Self prone as able. Continued admission due to significant hypoxia and dyspnea on exertion (2) Hypoxia: Aim O2 sats > 94% (3) Moderate persistent asthma: Continue Advair Diskus twice daily Continue Xyzal 5 mg p.o. daily Encouraged use of albuterol as needed (4) GERD (gastroesophageal reflux disease): Switch omeprazole for pantoprazole per hospital formulary (5) Obstructive sleep apnea: May use own CPAP. (6) DVT prophylaxis: Lovenox 40 mg SQ BID, increased due to continued high O2 requirement despite low d-dimer. Admission and Anticipated Discharge Date Admission Date: December 23, 2020 Subjective Starting to feel better as she is better at lying prone during the day time. However, O2 requirement has been slowly increasing. Less short of breath while walking around the room. Last fever 12/25 - she did not feel much different with this. No further diarrhea. Not able to tolerate our CPAP mask at night therefore will bring in her nasal CPAP at home. Review of Systems Review of Systems: All systems reviewed & are unremarkable except as noted in HPI & below Physical Exam Constitutional: WD/WN, vitals as above + obese Respiratory: normal respiratory effort and able to speak in complete sentences; no respiratory distress Auscultation: + diminished lung sounds (Bibasal, improved from yesterday); no crackles and no wheezes Cardiovascular: RRR, no murmur, no edema Neurologic: moves all extremities and awake; not confused Results & Data Results & Data ([facility]) Vital Signs (Past 12 Hours) Vital Signs Temp Pulse Resp BP Pulse Ox 12/26/20 12:34 93 12/26/20 11:57 92 12/26/20 11:49 36.9 C 71 22 110/71 90 12/26/20 09:05 36.9 C 76 20 112/75 93 12/26/20 03:29 59 L 20 94 PG Care Time/CCT Total # of Minutes Spent Total Time Spent with Patient: Total time spent is greater than 50% in coordination of care (as documented) at patient's floor/unit and/or counseling patient: Coding Level of Care Code 55292 Subseq Hosp Care Lvl 2 Diagnoses Pneumonia due to COVID-19 virus U07.1; J12.82 Hypoxia R09.02 Moderate persistent asthma J45.40 Asthma complication type: unspecified GERD (gastroesophageal reflux disease) K21.9 Obstructive sleep apnea G47.33 DVT prophylaxis Z29.9 (1) Moderate persistent asthma Asthma complication type: unspecified Qualified Code(s): J45.40 - Moderate persistent asthma, uncomplicated
[2020-12-26] MEDS: FLUTICASONE/VILANTEROL 200/25MCG 14 PUFFS/INHALER INH SCH (20:40)
[2020-12-26] MEDS: ENOXAPARIN INJ 40 MG/0.4 ML SYR SQ SCH (20:53)
[2020-12-26] MEDS: CETIRIZINE HCL 10 MG TABLET PO SCH (20:53)
[2020-12-27 08:33] LABS: Basophils # (auto) 0.01 K/uL (0-0.2); Basophils % (auto) 0.2 %; Eosinophils # (auto) 0.02 K/uL (0-0.5); Eosinophils % (auto) 0.4 %; Hematocrit (blood only) 38.1 % (37-47); Hemoglobin 12.6 g/dL (12.0-16.0); Immature Granulocytes # (auto) 0.01 K/uL (0.00-0.02); Immature Granulocytes % (auto) 0.2 %; Lymphocytes # (auto) 2.16 K/uL (1.2-3.4); Lymphocytes % (auto) 41.3 %; Mean Corpuscular Hemoglobin 27.3 pg (25-34); Mean Corpuscular Hgb Conc 33.1 g/dL (32-36); Mean Corpuscular Volume 82.5 fL (80-100); Mean Platelet Volume 10.1 fL (7.4-10.4); Monocytes % (auto) 7.6 %; Neutrophils # (auto) 2.63 K/uL (1.4-6.5); Neutrophils % (auto) 50.3 %; Platelet Count 392 K/uL (130-400); RDW Coefficient of Variation 13.9 % (11.5-14.5); RDW Standard Deviation 41.8 fL (36.4-46.3); Red Blood Count 4.62 M/uL (4.2-5.4); White Blood Count 5.23 K/uL (4.8-10.8)
[2020-12-27] MEDS: ALBUTEROL HFA 8 GM INHALER INH PRN (08:46)
[2020-12-27] MEDS: PANTOprazole 40 MG TAB PO SCH (08:47)
[2020-12-27] MEDS: ENOXAPARIN INJ 40 MG/0.4 ML SYR SQ SCH ×2 (08:47→19:49)
[2020-12-27] MEDS: dexAMETHasone 6 MG in SYRINGE 0 ML IV SCH (08:48)
[2020-12-27] MEDS: POTASSIUM CHLORIDE CRTAB 20 MEQ TABCR PO SCH ×2 (08:48→10:21)
[2020-12-27 08:57] LABS: BUN Creatinine Ratio 20.4 (10-20); C Reactive Protein 1.56 mg/dl (0-0.29); Calcium 9.3 mg/dl (8.5-10.1); Creatinine Clr Calc Pharmacy 119.4 ml/min; Est GFR (African American) 124.5; Est GFR (Non-African American) 107.4; Potassium 3.4 mmol/L (3.5-5.1)
[2020-12-27] MEDS ORDERED: POTASSIUM CHLORIDE CRTAB 20 MEQ TABCR PO STA (09:12)
[2020-12-27] MEDS: ALBUTEROL HFA 8 GM INHALER INH SCH ×5 (09:26→23:55)
[2020-12-27] MEDS ORDERED: POTASSIUM CHLORIDE PWD 20 MEQ PACK PO ONE (09:49)
[2020-12-27] MEDS: guaiFENesin 600 MG TABCR PO SCH ×2 (09:50→19:50)
[2020-12-27] MEDS ORDERED: Nursing to Pharmacy Communication SCH (11:00)
[2020-12-27] MEDS: FLUTICASONE/VILANTEROL 200/25MCG 14 PUFFS/INHALER INH SCH (19:41)
[2020-12-27] MEDS: CETIRIZINE HCL 10 MG TABLET PO SCH (19:50)
--- NOTE | 2020-12-27 21:23 | Hospitalist Progress Note ---
Date of Service December 27, 2020 Assessment & Plan (1) Pneumonia due to COVID-19 virus: Remains hypoxic with 5 liters NC O2 requirement. Continue 10-day course of IV/PO dexamethasone; day #5 today. Plasma/remdesivir were deferred earlier this stay and certainly too late at this point for any efficacy. Schedule albuterol q4h. self-prone as much as possible. increase lovenox to 40mg BID for DVT prevention. add asa 81mg daily - studies have shown this may prevent complications. repeat cxr in am. COVID isolation precautions. cont usual inhalers from home. (2) Acute respiratory failure with hypoxia: 2nd COVID-19 pneumonia. as above. (3) Moderate persistent asthma: Continue Advair Diskus twice daily Continue Xyzal 5 mg p.o. daily Albuterol q4h scheduled pulmonary toilet Continue steroids (4) GERD (gastroesophageal reflux disease): Continue pantoprazole (5) Obstructive sleep apnea: May use own CPAP from home (6) Hypokalemia: replete repeat bmp am mag level wnl (7) DVT prophylaxis: Lovenox 40 mg SQ BID - higher dose lovenox due to increased VTE risk with COVID updated by phone today Admission and Anticipated Discharge Date Admission Date: December 23, 2020 Subjective continues with severe fatigue, cough. with any activity she gets worn out quickly. has lost her sense of smell - has not come back yet. no wheezing. no chest pain or pleurisy. had had diarrhea now resolved. no fever overnight. Review of Systems Constitutional: + fatigue, + malaise and + weakness Ear, Nose, Mouth, Throat: no nasal congestion and no sore throat Respiratory: + cough and + dyspnea on exertion; no hemoptysis, no pain on inspiration and no sputum production Cardiovascular: no chest pain Gastrointestinal: no abdominal pain and no vomiting Physical Exam Constitutional: no acute distress and no altered mental status ENMT: external ear and nose normal, oropharynx normal Respiratory: no respiratory distress Auscultation: + diminished lung sounds and + crackles; no wheezes Cardiovascular: RRR, no murmur, no edema Heart Sounds: normal S1 and normal S2 Vessels: posterior tibial pulses present and dorsalis pedis pulses present; no JVD Gastrointestinal (Abdomen): normal bowel sounds, soft, nontender, no hepatosplenomegaly Musculoskeletal: no cyanosis or clubbing, extremities motor strength 5/5 Skin: no rashes, warm and dry Psychiatric: A+Ox3, euthymic affect Results & Data Results & Data ([facility]) Vital Signs (Past 12 Hours) Vital Signs Pulse Resp Pulse Ox 12/27/20 19:24 69 18 96 12/27/20 15:24 74 16 92 12/27/20 11:46 83 18 91 Laboratory Results Laboratory Results - last 24 hr 12/27/20 12/27/20 12/27/20 08:13 08:13 08:13 WBC 5.23 RBC 4.62 Hgb 12.6 Hct 38.1 MCV 82.5 MCH 27.3 MCHC 33.1 RDW Std Deviation 41.8 RDW Coeff of Jannette 13.9 Plt Count 392 MPV 10.1 Immature Gran % (Auto) 0.2 Neut % (Auto) 50.3 Lymph % (Auto) 41.3 [place] % (Auto) 7.6 Eos % (Auto) 0.4 Baso % (Auto) 0.2 Neut # (Auto) 2.63 Lymph # (Auto) 2.16 [place] # (Auto) 0.40 Eos # (Auto) 0.02 Baso # (Auto) 0.01 Immature Gran # (Auto) 0.01 Sodium 142 Potassium 3.4 L Chloride 108 H Carbon Dioxide 28 Anion Gap 5.0 BUN 13 Creatinine 0.66 Est Cr Clr Drug Dosing 119.4 Est GFR ( Amer) 124.5 Est GFR (Non-Af Amer) 107.4 BUN/Creatinine Ratio 20.4 H Glucose 77 Calcium 9.3 Magnesium 2.3 C-Reactive Protein 1.56 H PG Care Time/CCT Total # of Minutes Spent Total Time Spent with Patient: Total time spent is greater than 50% in coordination of care (as documented) at patient's floor/unit and/or counseling patient: Coding Level of Care Code 36731 Subseq Hosp Care Lvl 2 Diagnoses Pneumonia due to COVID-19 virus U07.1; J12.82 Acute respiratory failure with hypoxia J96.01 Moderate persistent asthma J45.40 Asthma complication type: unspecified GERD (gastroesophageal reflux disease) K21.9 Obstructive sleep apnea G47.33 Hypokalemia E87.6 DVT prophylaxis Z29.9 (1) Moderate persistent asthma Asthma complication type: unspecified Qualified Code(s): J45.40 - Moderate persistent asthma, uncomplicated
[2020-12-28] MEDS: ALBUTEROL HFA 8 GM INHALER INH SCH ×5 (03:20→19:48)
[2020-12-28 08:27] LABS: BUN Creatinine Ratio 22.5 (10-20); Calcium 9.6 mg/dl (8.5-10.1); Creatinine Clr Calc Pharmacy 148.7 ml/min; Est GFR (African American) 133.8; Est GFR (Non-African American) 115.5
--- NOTE | 2020-12-28 08:57 | XRay Report ---
XR chest 1V portable CLINICAL HISTORY: covid pneumonia, worsening hypoxia COMPARISON STUDY: Chest radiograph December 23, 2020. FINDINGS: Lung volumes are normal. There is no pneumothorax or pleural effusion. Moderate multifocal bilateral airspace opacities have progressed. Cardiac size is normal. Mediastinal contours are normal . IMPRESSION: Progression of multifocal bilateral airspace opacities consistent with pneumonia. ACT 112: Negative or not required by law. Electronically signed by: Byron Murillo M.D. 12/28/2020 8:56 AM
[2020-12-28] MEDS ORDERED: POTASSIUM CHLORIDE CRTAB 20 MEQ TABCR PO SCH ×2 (09:00→09:40)
[2020-12-28] MEDS: ASPIRIN 81 MG ECTAB PO SCH (09:13)
[2020-12-28] MEDS: guaiFENesin 600 MG TABCR PO SCH ×2 (09:13→20:31)
[2020-12-28] MEDS: PANTOprazole 40 MG TAB PO SCH (09:13)
[2020-12-28] MEDS: ENOXAPARIN INJ 40 MG/0.4 ML SYR SQ SCH ×2 (09:14→20:31)
[2020-12-28] MEDS: dexAMETHasone 6 MG in SYRINGE 0 ML IV SCH (09:15)
[2020-12-28] MEDS: ACETAMINOPHEN 325 MG TAB PO PRN (09:19)
[2020-12-28] MEDS: POTASSIUM CHLORIDE / WTR 10 MEQ/100 ML PLCT IV SCH ×3 (12:51→17:09)
--- NOTE | 2020-12-28 19:22 | Hospitalist Progress Note ---
Date of Service December 28, 2020 Assessment & Plan (1) Pneumonia due to COVID-19 virus: IMPROVING clinically and O2 requirement is slowly dropping. Continue 10-day course of IV/PO dexamethasone; day #6 today. Plasma/remdesivir were deferred earlier this stay and certainly too late at this point for any efficacy. Cont scheduled albuterol q4h. Cont self-proning. Cont lovenox 40mg BID for DVT prevention. Cont asa 81mg daily - studies have shown this may prevent complications. COVID isolation precautions. cont usual inhalers from home. (2) Acute respiratory failure with hypoxia: 2nd COVID-19 pneumonia. as above. (3) Moderate persistent asthma: Continue Advair Diskus twice daily Continue Xyzal 5 mg p.o. daily Albuterol q4h scheduled pulmonary toilet Continue steroids (4) GERD (gastroesophageal reflux disease): Continue pantoprazole (5) Obstructive sleep apnea: CPAP from home (6) Hypokalemia: replete KCL 30meq IV x 1 repeat BMP am (7) DVT prophylaxis: Lovenox 40 mg SQ BID - higher dose lovenox due to increased VTE risk with COVID at discharge will use xarelto 10mg daily for 30 days for post-d/c DVT prevention updated by phone again today - that was a 20 min phone call total time today 35 minutes including bedside rounds, phone call to , care coordination hopeful for d/c next 1-2 days will need 2-step Admission and Anticipated Discharge Date Admission Date: December 23, 2020 Subjective feels better today able to work on job-related things via her computer still with cough and still with fatigue but denies dyspnea no cp no abd pain no GI symptoms appetite improving Review of Systems Constitutional: + fatigue; no fever, no chills and no body aches Respiratory: + cough; no dyspnea on exertion and no sputum production Cardiovascular: no chest pain and no edema Gastrointestinal: no abdominal pain Physical Exam Constitutional: no acute distress and no altered mental status ENMT: external ear and nose normal, oropharynx normal Respiratory: no respiratory distress Auscultation: + diminished lung sounds and + crackles (extensive b/l, but improved overall today w/ better airation ); no wheezes Cardiovascular: RRR, no murmur, no edema Heart Sounds: normal S1 and normal S2 Vessels: posterior tibial pulses present and dorsalis pedis pulses present; no JVD Gastrointestinal (Abdomen): normal bowel sounds, soft, nontender, no hepatosplenomegaly Skin: no rashes, warm and dry Psychiatric: A+Ox3, euthymic affect Results & Data Results & Data ([facility]) Vital Signs (Past 12 Hours) Vital Signs Temp Pulse Resp BP Pulse Ox 12/28/20 17:10 36.9 C 65 20 104/68 94 12/28/20 14:57 74 20 92 12/28/20 10:49 61 20 96 12/28/20 09:21 36.8 C 58 L 20 117/78 93 12/28/20 07:44 50 L 22 96 Laboratory Results Laboratory Results - last 24 hr 12/28/20 07:22 Sodium 140 Potassium 3.0 L Chloride 107 Carbon Dioxide 26 Anion Gap 7.0 BUN 12 Creatinine 0.53 L Est Cr Clr Drug Dosing 148.7 Est GFR ( Amer) 133.8 Est GFR (Non-Af Amer) 115.5 BUN/Creatinine Ratio 22.5 H Glucose 73 Calcium 9.6 AST 20 ALT 43 PG Care Time/CCT Total # of Minutes Spent Total Time Spent with Patient: Total time spent is greater than 50% in coordination of care (as documented) at patient's floor/unit and/or counseling patient: Coding Level of Care Code 34249 Subseq Hosp Care Lvl 3 Diagnoses Pneumonia due to COVID-19 virus U07.1; J12.82 Acute respiratory failure with hypoxia J96.01 Moderate persistent asthma J45.40 Asthma complication type: unspecified GERD (gastroesophageal reflux disease) K21.9 Obstructive sleep apnea G47.33 Hypokalemia E87.6 DVT prophylaxis Z29.9 (1) Moderate persistent asthma Asthma complication type: unspecified Qualified Code(s): J45.40 - Moderate persistent asthma, uncomplicated
[2020-12-28] MEDS: CETIRIZINE HCL 10 MG TABLET PO SCH (20:31)
[2020-12-28] MEDS: FLUTICASONE/VILANTEROL 200/25MCG 14 PUFFS/INHALER INH SCH (20:32)
[2020-12-29] MEDS: ALBUTEROL HFA 8 GM INHALER INH SCH ×4 (05:10→15:27)
[2020-12-29 07:39] LABS: BUN Creatinine Ratio 22.8 (10-20); Calcium 9.3 mg/dl (8.5-10.1); Creatinine Clr Calc Pharmacy 151.6 ml/min; Est GFR (African American) 134.7; Est GFR (Non-African American) 116.2; Potassium 3.5 mmol/L (3.5-5.1)
[2020-12-29] MEDS: dexAMETHasone 6 MG in SYRINGE 0 ML IV SCH (09:26)
[2020-12-29] MEDS: guaiFENesin 600 MG TABCR PO SCH (09:26)
[2020-12-29] MEDS: ENOXAPARIN INJ 40 MG/0.4 ML SYR SQ SCH (09:26)
[2020-12-29] MEDS: ASPIRIN 81 MG ECTAB PO SCH (09:27)
[2020-12-29] MEDS: PANTOprazole 40 MG TAB PO SCH (09:27)
--- NOTE | 2020-12-29 16:31 | Discharge Summary ---
Date of Service date of admission - December 23, 2020 date of discharge - December 29, 2020 Admission HPI Per Admitting Provider Mel Tapia is a 45-year-old female who presents to the ER with known COVID-19 pneumonia due to worsening shortness of breath, cough and weakness. Initial symptoms 6 days ago with generalized myalgias a following morning she woke up with loss of taste. Symptoms slowly progressively getting worse. Currently on day 7 of illness. She is in the process of moving house and decided to isolate from her family by moving into the new house. Unfortunately she is not been able to care for self at this time with significant fatigue, poor appetite and diarrhea starting this morning. She denies any nausea/vomiting, nasal congestion or abdominal pain. She has been using her albuterol inhaler more which she feels has been helping. Not yet taken any steroids or antibiotics. On Advair Diskus but did not take this this morning. She reports having "a lot of allergies" even to allergy shots. In the ER chest x-ray concerning for bilateral viral pneumonia. She was hypoxic requiring 3LPM O2 to maintain O2 sats > 94%. She was referred to medicine for admission ongoing management of COVID-19 pneumonia and hypoxia Principal Diagnosis acute hypoxic respiratory failure 2nd to COVID-19 pneumonia Discharge Exam Constitutional no acute distress and no altered mental status ENMT external ear and nose normal, oropharynx normal Respiratory no respiratory distress Auscultation: + diminished lung sounds and + crackles (b/l bases, but improved overall today w/ better airation ); no wheezes Cardiovascular RRR, no murmur, no edema Heart Sounds: normal S1 and normal S2 Vessels: posterior tibial pulses present and dorsalis pedis pulses present; no JVD Gastrointestinal (Abdomen) normal bowel sounds, soft, nontender, no hepatosplenomegaly Musculoskeletal no cyanosis or clubbing, extremities motor strength 5/5 Skin no rashes, warm and dry Psychiatric A+Ox3, euthymic affect Discharge Data Allergies Allergy/AdvReac Type Severity Reaction Status Date / Time Penicillins Allergy Intermediate Vomiting Unverified 12/23/20 10:09 apple Allergy Verified 12/28/20 14:07 cabbage Allergy Verified 12/28/20 14:07 Consultations Respiratory Therapy Procedures Performed 2-step ambulatory oxygen test - 2 liters of NC O2 needed with ambulation/activity Hospital Course (1) Pneumonia due to COVID-19 virus: IMPROVED clinically with below measures. Received 7 days of IV/PO dexamethasone while here; will complete 3 more days of dexamethasone 6mg/day at home. Plasma/remdesivir were deferred as the patient presented too far into her illness to gain benefit from either modality. In addition to the above she received scheduled bronchodilators, aspirin low- dose, and lovenox twice daily. She was diligent about pulmonary toilet with flutter valve/incentive spirometry along with self-proning. She never had evidence of complicating CHF, PE, or bacterial superinfection. At discharge she will require 2 liters of NC O2 with ambulation/activity. Advised follow-up with pulmonology post-discharge given the severity of her COVID illness, need for ambulatory oxygen, and baseline asthma. Patient is moving to [place], [place], and thus she will establish care with Dr Shola Kennedy, pulmonology, in [place]. (2) Acute respiratory failure with hypoxia: 2nd COVID-19 pneumonia. as above. (3) Moderate persistent asthma: Continue Advair Diskus twice daily for maintenance therapy. Continue Xyzal 5 mg p.o. daily. Albuterol q4h prn. Continue pulmonary toilet at home along with self-proning. Ambulatory O2, 2 liters, with activity. Continue steroids x 3 days as above. Establish care with new strip presser in [place], [place] as above. (4) GERD (gastroesophageal reflux disease): Continue pantoprazole. (5) Obstructive sleep apnea: CPAP. (6) Hypokalemia: 2nd to poor oral intake and diarrhea. Repleted, and K level 3.5 at discharge. Mag level wnl at discharge. (7) DVT prophylaxis: Lovenox 40 mg SQ BID - higher dose lovenox was utilized due to increased VTE risk with COVID. At discharge prescribed xarelto 10mg daily for 30 days for DVT/PE prevention. 30-day free voucher given to patient. Patient is moving to [place], [place] post-discharge. She will need to establish care with a new PCP upon her move. Total Time Total Time Spent Total Time Spent (In Minutes): 45 Total Time Includes: Examination of the Patient, Discharge Planning and Medication Reconciliation Discharge Plan Discharge Items Patient Disposition: Home - Self-Care Reason For Visit: COVID 19 PNEUMONIA Discharge Diagnosis: COVID-19 Pneumonia Activity: As commented below Activity Comment: gradually increase activities over the next 10-14 days Non-emergency contact: Primary Care Provider and Radiological Defense Officer Call non-emergency contact if: you have any medication questions, your symptoms worsen and your temperature is above 101 Follow-up/Referrals: Shola Kennedy MD [Other] - 01/14/21 11:30 am (first available appointment either in [place] office or [facility] office; dx - asthma, COVID-19 pneumonia, O2-dependent This appt will be TeleHealth due to Dx of COVID 19 you will see AKANKSHA Albert. The office will then make an appt for you to see Dr. Kennedy at a later date.) PCP,NO [Primary Care Provider] - (please establish care with new PCP either in [place] or [facility] upon your move; ideally you should be seen within 1 week) Diet: Regular Addtl Attending Provider Instructions: Ms Tapia, Melvin were treated for COVID-19 pneumonia during your stay at [facility]. You received IV steroids, oxygen, breathing treatments, and other supportive care measures. With the above treatments and time your symptoms improved. You will need oxygen at home when you ambulate/do activities. You can take the oxygen off when you are sitting or resting. If needed/if desired the oxygen can be used during sleep. Recommendations - 1. dexamethasone steroid - take 6mg daily for 3 more days starting TOMORROW, 12/30/20. Take with food. 2. albuterol via spacer device - can use every 4 hours as needed for cough/wheezing/shortness of breath. 3. please take Xarelto blood thinner medication 10mg once daily for 30 days to help prevent blood clots of the legs and lungs. Start this TOMORROW, 12/30/20. Be sure to take the voucher with you to [facility] to receive the 30-day supply for free. Just take for 30 days then stop. 4. the Xarelto can increase your chances of bleeding from your rectum, urine, etc. Most people do fine on this low-dose of blood thinner. If you experience any bleeding side effects please let your doctors know right away. The benefits of the xarelto, however, outweigh the downsides of the medication as you are at risk of blood clots due to the severity of your COVID illness. 5. continue your advair as previous. 6. do not allow smokers in your home due to the oxygen. 7. be sure to listen to your body as you are recovering over the next few weeks. You likely will experience fatigue, weakness, and shortness of breath intermittently during your recovery period. Gradually resume normal activities as you get stronger. Work may be challenging in the next 1-2 weeks so keep in close contact with your employer. 8. continue to prone ("tummy time") as much as possible over the next 1-2 weeks. 9. continue to use the incentive spirometer and flutter valve as much as possible over the next couple of weeks. 10. please consider obtaining the COVID vaccine in about 3-4 months as your natural immunity to the illness will gradually go down over time. As your immunity wanes you will be vulnerable to this illness once again. 11. you are likely not contagious to others at this time as you are greater than 10 days out from the start of your illness and you are improving. To be on the safe side, however, it is likely prudent to remain in isolation for another 2-3 days at your home. 12. check your oxygen levels on your finger with a pulse oximeter. This can be purchased at any pharmacy. Recommend checking twice daily. Oxygen levels greater than 90% consistently is what you are looking for. Follow-up - * see the lung specialist as scheduled * be sure to establish with a new primary care physician or provider and see that person within 1 week if possible Return to [facility] if - * you have recurrent fevers over 101 degrees * you have worsening shortness of breath * your oxygen levels on your pulse oximeter are consistently less than 90% * you develop chest pains or leg pains * you have to incre Best wishes for a speedy recovery! -Dr Porter Pending Studies at Discharge: No Stand-Alone Forms: My [facility], Work/School Release (Inpt), Smoking Cessation Medications and DC Order Prescriptions: New (DME) Oxygen Home Liters Per Minute See Rx Instructions .ROUTE .MEDSUPPLY Qty: 1 RF: 0 albuterol sulfate [Ventolin HFA] 90 mcg/actuation Hfa Aerosol Inhaler 2 puff inhalation Q4H PRN (Reason: cough/wheeze/shortness of breath) Qty: 1 RF: 1 Xarelto 10 mg tablet 10 mg PO DAILY 30 Days Qty: 30 RF: 0 (DME) Aerochamber Plus Flow-Vu Spacer See Rx Instructions .ROUTE .MEDSUPPLY Qty: 1 RF: 0 Continued fluticasone propion-salmeterol [Advair Diskus] 250-50 mcg/dose Blister With Device 1 inh INHALATION BID RF: 0 omeprazole 40 mg Capsule,Delayed Release(Dr/Ec) 40 mg PO QAM RF: 0 levocetirizine [Xyzal] 5 mg Tablet 5 mg PO PM PRN (Reason: seasonal allergies) RF: 0 Discharge Orders: Discharge Order (Routine); Ordered 12/29/20 Ordered By: Hugo Stone/Other Patient Handouts: 2019-nCoV, COVID-19 Prevention, COVID-19 Home Care, Proning COVID-19, Using an Inhaler with a Spacer, Caring for Someone Who Has COVID-19, Disinfecting Your Home of COVID-19, How COVID-19 Spreads Admission Data Admit Date/Time: 12/23/20 13:10 Attending Provider: Hugo Porter Admit Provider: Hugo Mills Primary Care Provider: PCP,NO Other Providers: Hugo Mills Other Interventions: Discharge Summary Assessment (RN) Last Done: 12/29/20 16:33 Coding Level of Care Code D/C Day Management >30 mins Diagnoses Pneumonia due to COVID-19 virus U07.1; J12.82 Acute respiratory failure with hypoxia J96.01 Moderate persistent asthma J45.40 Asthma complication type: unspecified GERD (gastroesophageal reflux disease) K21.9 Obstructive sleep apnea G47.33 Hypokalemia E87.6 DVT prophylaxis Z29.9
== END 2020-12-29 17:29 | disposition home or self-care (01) | DRG 177 ==
LOC: ED 09:20 → 3N 13:10 → SUATTDRO 13:10 → 3N 14:40